=== PATIENT | female | born 2000 | race African-American/Black ===

== ENCOUNTER 2018-01-27 05:52 | Emergency (ER) | payer MEDICAID, OTHER ==
[~2018-01-27] VITALS: Ht 160 cm; Wt 67.0 kg
[~2018-01-27 05:52] MED LIST: ALBUTEROL
[2018-01-27 06:36] VITALS: BP 120/64
[2018-01-27] MEDS ORDERED: IBUPROFEN 400MG TABLET PO ONE (06:45)
== END 2018-01-27 10:38 | disposition home or self-care (01) ==
LOC: ER 09:40
DX: S90.121A Contusion of right lesser toe(s) without damage to nail, initial encounter (principal); S80.01XA Contusion of right knee, initial encounter; X58.XXXA Exposure to other specified factors, initial encounter; Y93.89 Activity, other specified; Y92.89 Other specified places as the place of occurrence of the external cause; Y99.8 Other external cause status
CPT/HCPCS: 99282

== ENCOUNTER 2019-01-09 08:42 | Emergency (ER) | payer SELFPAY ==
[~2019-01-09] VITALS: Ht 160 cm; Wt 63.0 kg
[2019-01-09 08:50] VITALS: BP 113/74
[2019-01-09] MEDS ORDERED: ACETAMINOPHEN 325MG TABLET PO STA (09:07)
== END 2019-01-09 10:32 | disposition home or self-care (01) ==
LOC: ER 08:42
DX: S90.32XA Contusion of left foot, initial encounter (principal); J45.909 Unspecified asthma, uncomplicated; W22.8XXA Striking against or struck by other objects, initial encounter; Y93.89 Activity, other specified; Y92.9 Unspecified place or not applicable
CPT/HCPCS: 73630; 99283

== ENCOUNTER 2021-05-24 15:03 | Emergency (ER) | payer MEDICAID ==
[~2021-05-24] VITALS: Ht 160 cm; Wt 77.0 kg
[2021-05-24] MEDS ORDERED: IBUPROFEN 400MG TABLET PO ONE (17:15)
[2021-05-24 18:19] LABS: BASOPHILS % 2.8 % (0.0-2.0); EOSINOPHILS % 9.2 % (0.0-5.0); HEMATOCRIT. 40.3 % (36.0-48.0); HEMOGLOBIN. 13.5 g/dL (12.0-16.0); LYMPHOCYTES % 32.5 % (20.0-50.0); MEAN CORPUSCULAR HEMOGLOBIN 29.6 pg (28.0-32.0); MEAN CORPUSCULAR VOLUME 88.5 fL (81.0-99.0); MEAN PLATELET VOLUME 8.9 fl (7.4-10.4); MONOCYTES % 11.9 % (2.0-8.0); NEUTROPHILS % 43.6 % (40.0-76.0); PLATELET 434 x1000/uL (130-400); RED BLOOD CELL COUNT 4.55 mill/uL (4.2-5.4); RED CELL DISTRIBUTION WIDTH 13.7 % (11.6-14.6)
[2021-05-24 18:31] LABS: CHLORIDE 105 mEq/L (98-107)
[2021-05-24 18:38] LABS: HCG SCREEN NEGATIVE
[2021-05-24] MEDS ORDERED: IBUP-2028 MT (20:00)
[2021-05-24 20:24] VITALS: BP 125/78
== END 2021-05-24 20:25 | disposition home or self-care (01) ==
LOC: ER 15:03
DX: R07.89 Other chest pain (principal); J45.909 Unspecified asthma, uncomplicated
CPT/HCPCS: 36415; 71045; 80053; 84703; 85025; 99284